=== PATIENT | female | born 1935 | race Caucasian/White ===

== ENCOUNTER 2016-10-21 11:11 | Emergency (ER) | payer MEDICARE, OTHER ==
[~2016-10-21] VITALS: Ht 165.1 cm; Wt 47.0 kg
[~2016-10-21 11:11] MED LIST: ALBU0.086 INH; ALIG4CAP PO; BIOT2500 PO; CARB1DRO EACH EYE; DIPH1TAB36 PO; ESTR30V PV; GABA300C3 PO; LEVA1.25 IN; MUCI600T PO; PRIL20CA PO; SYMB80AE INH; VITA-13 PO
[2016-10-21 11:14] VITALS: PULSE 93; RESP 28; TEMP 97.8; O2SAT 91
[2016-10-21 11:25] VITALS: BP 175/76; PULSE 89; RESP 24; TEMP 98.6; O2SAT 92
[2016-10-21 11:34] VITALS: BP 175/76; PULSE 90; RESP 24; O2SAT 96
[2016-10-21] MEDS ORDERED: VITA100018 PO (11:42)
[2016-10-21] MEDS ORDERED: IPRASOL INH (11:42)
[2016-10-21] MEDS ORDERED: SYMB80AE INH (11:42)
[2016-10-21] MEDS ORDERED: GABA300C5 PO (11:42)
[2016-10-21] MEDS ORDERED: ESTR0.62 VAGINAL (11:42)
[2016-10-21] MEDS ORDERED: BIOT1SUB SL (11:42)
[2016-10-21] MEDS ORDERED: AZEL0.055 EACH NARE (11:42)
[2016-10-21] MEDS ORDERED: OMEP20TA PO (11:42)
[2016-10-21] MEDS ORDERED: PRED5TAB PO (11:42)
[2016-10-21] MEDS ORDERED: FEXO1TAB41 PO (11:42)
--- NOTE | 2016-10-21 12:01 | PD ---
HPI Chief Complaint: Respiratory Symptoms Time Seen by Provider: 11:21 Travel History International Travel<30 days: No Contact w/Intl Traveler<30days: No Traveled to known affect area: No History of Present Illness HPI 81-year-old female came to the emergency room with history of progressive shortness of breath for past 6 weeks. She has significant history of COPD and bronchiectasis and her revenue officer is Dr. Clarke. Patient says that she went to see him this morning and he sent her to the emergency room. Patient usually requires oxygen via nasal cannula at night but she said lately she's been using it throughout the day. Even the slightest activity brings shortness of breath. No chest pain. No significant chills or fever. She has had multiple pneumonias in the past and multiple doses of antibiotics. Patient has been slightly hypertensive. Currently she is laying in bed and looks comfortable. Patient took one nebulizer this morning prior to coming to the emergency room. PFSH Past Medical History Narrative Medical List of her past medical history as reviewed from the nursing note. Cancer: No Cardiovascular Problems: Yes (LEAKY AORTIC VALVE) COPD: Yes Diminished Hearing: No Endocrine: No Gastrointestinal Disorders: Yes GERD: Yes Genitourinary: No Immune Disorder: No Musculoskeletal: No Neurologic: No Reproductive: No Respiratory: Yes (COPD / BRONCHIECTASIS) Immunizations Current: Yes (SHINGLES) Influenza Vaccination: Yes ?: Not Menopausal: Yes Past Surgical History Hysterectomy: Yes Thoracic Surgery: Yes (RT UPPER LUNG- CYST REMOVED 1998) Tonsillectomy: Yes (T & A as a child) Other Surgery: Yes (RIGHT HAND) Social History Alcohol Use: Yes (One drink every day) Tobacco Use: No (quit in 1966 smoked for approx 10-12 yrs 1 ppd of cigs) Substance Use: No Allergies-Medications (Allergen,Severity, Reaction): Coded Allergies: Ancef (Verified Allergy, Severe, RASH, 10/21/16) Flagyl (Verified Allergy, Severe, BURNING SENSATION, 10/21/16) Myambutol (Verified Allergy, Severe, EYE PROBLEMS, 10/21/16) Penicillin (Verified Allergy, Severe, HIVES, 10/21/16) Tobramycin (Verified Allergy, Severe, BURNING SENSATION, 10/21/16) Levaquin (Verified Allergy, Unknown, Numbness, 10/21/16) Comments List of her allergies reviewed from the nursing note. Reported Meds & Prescriptions Reported Meds & Active Scripts Active Bactrim DS (Sulfamethoxazole-Trimethoprim) 800-160 Mg Tab 1 Tab PO BID Reported Premarin Vaginal (Estrogens, Conjugated Vaginal) 0.625 Mg/Gm Cream 1 Gm VAGINAL HS Biotin 5,000 Mcg Subl 2,500 Mcg SL DAILY Mucinex Allergy (Fexofenadine HCl) 180 Mg Tab 180 Mg PO DAILY Azelastine Nasal [place] (Azelastine HCl) 0.15% [place] 2 [place] EACH NARE BID To each nostril. Vitamin D3 (Cholecalciferol) 1,000 Unit Tab 1,000 Units PO DAILY Duoneb (Ipratropium-Albuterol Neb) 0.5-2.5 Mg/3 Ml Neb 1 Nebule INH BID NEB Omeprazole 20 Mg Tab 20 Mg PO DAILY Gabapentin 300 Mg Cap 300 Mg PO BID Symbicort Inh (Budesonide/Formoterol Fumarate) 80-4.5 Mcg/Act Aero 2 Puff INH Q12HR Prednisone 5 Mg Tab 5 Mg PO DAILY Narrative Medication List of her home medications reviewed from the nursing note. Review of Systems Except as stated in HPI: all other systems reviewed are Neg Physical Exam Narrative GENERAL: Awake, alert, elderly, mild distress SKIN: Warm and dry. HEAD: Atraumatic. Normocephalic. EYES: Pupils equal and round. No scleral icterus. No injection or drainage. ENT: No nasal bleeding or discharge. Mucous membranes pink and moist. NECK: Trachea midline. No JVD. CARDIOVASCULAR: Regular rate and rhythm. No murmur appreciated. RESPIRATORY: No accessory muscle use. Fine crackles in patchy distribution. GASTROINTESTINAL: Abdomen soft, non-tender, nondistended. Hepatic and splenic margins not palpable. MUSCULOSKELETAL: No obvious deformities. No clubbing. No cyanosis. No edema. NEUROLOGICAL: Awake and alert. No obvious cranial nerve deficits. Motor grossly within normal limits. Normal speech. PSYCHIATRIC: Appropriate mood and affect; insight and judgment normal. Data Data Last Documented VS Vital Signs Date Time Temp Pulse Resp B/P Pulse Ox O2 Delivery O2 Flow Rate FiO2 10/21/16 13:26 85 22 149/65 99 Nasal Cannula 2 10/21/16 11:25 98.6 Orders Electrocardiogram (10/21/16 ) Complete Blood Count With Diff (10/21/16 12:04) Basic Metabolic Panel (Bmp) (10/21/16 12:04) B-Type Natriuretic Peptide (10/21/16 12:04) Prothrombin Time / Inr (Pt) (10/21/16 12:04) Magnesium (Mg) (10/21/16 12:04) Ckmb (Isoenzyme) Profile (10/21/16 12:04) Troponin I (10/21/16 12:04) Urinalysis - C+S If Indicated (10/21/16 12:04) Blood Culture (10/21/16 12:04) Iv Access Insert/Monitor (10/21/16 12:04) Ecg Monitoring (10/21/16 12:04) Oximetry (10/21/16 12:04) Oxygen Administration (10/21/16 12:04) Chest, Single Ap (10/21/16 12:04) Sodium Chloride 0.9% Flush (Ns Flush) (10/21/16 12:15) Albuterol-Ipratropium Neb (Duoneb Neb) (10/21/16 12:15) Sodium Chlorid 0.9% 500 Ml Inj (Ns 500 M (10/21/16 13:15) Sulfamet-Trimeth Ds 800-160 Mg (Bactrim (10/21/16 13:30) Labs Laboratory Tests Test 10/21/16 10/21/16 12:10 13:03 White Blood Count 15.4 TH/MM3 Red Blood Count 4.68 MIL/MM3 Hemoglobin 14.2 GM/DL Hematocrit 42.8 % Mean Corpuscular Volume 91.6 FL Mean Corpuscular Hemoglobin 30.5 PG Mean Corpuscular Hemoglobin 33.2 % Concent Red Cell Distribution Width 13.9 % Platelet Count 396 TH/MM3 Mean Platelet Volume 8.4 FL Neutrophils (%) (Auto) 86.8 % Lymphocytes (%) (Auto) 6.2 % Monocytes (%) (Auto) 5.1 % Eosinophils (%) (Auto) 1.2 % Basophils (%) (Auto) 0.7 % Neutrophils # (Auto) 13.4 TH/MM3 Lymphocytes # (Auto) 1.0 TH/MM3 Monocytes # (Auto) 0.8 TH/MM3 Eosinophils # (Auto) 0.2 TH/MM3 Basophils # (Auto) 0.1 TH/MM3 CBC Comment DIFF FINAL Differential Comment Prothrombin Time 10.5 SEC Prothromb Time International 1.0 RATIO Ratio Sodium Level 138 MEQ/L Potassium Level 4.4 MEQ/L Chloride Level 102 MEQ/L Carbon Dioxide Level 27.9 MEQ/L Anion Gap 8 MEQ/L Blood Urea Nitrogen 29 MG/DL Creatinine 1.02 MG/DL Estimat Glomerular Filtration 52 ML/MIN Rate Random Glucose 76 MG/DL Calcium Level 9.0 MG/DL Magnesium Level 2.0 MG/DL Total Creatine Kinase 82 U/L Troponin I LESS THAN 0.02 NG/ML B-Type Natriuretic Peptide 129 PG/ML Urine Color YELLOW Urine Turbidity CLEAR Urine pH 5.5 Urine Specific [place] 1.014 Urine Protein NEG mg/dL Urine Glucose (UA) NEG mg/dL Urine Ketones NEG mg/dL Urine Occult Blood NEG Urine Nitrite NEG Urine Bilirubin NEG Urine Urobilinogen LESS THAN 2.0 MG/DL Urine Leukocyte Esterase LARGE Urine RBC 3 /hpf Urine WBC 4 /hpf Urine Squamous Epithelial 2 /hpf Cells Urine Bacteria RARE /hpf Urine Mucus FEW /lpf Microscopic Urinalysis Comment CULT NOT INDICATED MDM Medical Decision Making Medical Screen Exam Complete: Yes Emergency Medical Condition: Yes Medical Record Reviewed: Yes Interpretation(s) Twelve-lead EKG was reviewed by me. Normal sinus rhythm, left axis deviation, nonspecific ST-T wave changes. Heart rate of 81 bpm. Differential Diagnosis Pneumonia, COPD exacerbation, pleural effusion Narrative Course 1 PM patient has slight leukocytosis. Chest x-ray shows emphysematous changes but no new pneumonia as per the radiologist. Patient appears to be somewhat dehydrated. I'll give her a fluid bolus. I have put a call out for Dr. Clarke who is her revenue officer to speak with him since he recommended her to come to the emergency room. 1:49 PM I discussed the case with her revenue officer who let me know that he had not seen the patient today and this was over the phone conversation when he recommended her to go to the emergency room. Given the fact that her vital signs are fine at rest and he was comfortable having the patient go home on Bactrim. He'll call the patient and get an appointment to see him. I'm comfortable with that plan. Procedures EKG Prior to Arrival: Yes Diagnosis Primary Impression: COPD with acute exacerbation Additional Impression: Bronchitis Referrals: Primary Care Physician 2 days Additional Instructions: Please return to the ER if the condition worsens or any other new concerns. Otherwise follow-up with your revenue officer in couple days. Dr. Clarke's nurse will call you to give him an appointment to see him. Please take the medication as per the prescription direction Med/Other Pt SpecificInfo: Prescription(s) given Scripts Sulfamethoxazole-Trimethoprim (Bactrim DS)800-160 Mg Tab1 Tab PO BID #20 TAB Ref 0 Prov:Manuela Ellison MD 10/21/16 Disposition: 01 DISCHARGE HOME Condition: Stable Manuela Ellison MD Oct 21, 2016 12:00
[2016-10-21] MEDS ORDERED: SODIUM CHLORIDE 0.9% FLUSH 5 ML FLUSH IVF PRN (12:15)
[2016-10-21] MEDS: RESP: ALBUTEROL 2.5 MG/IPRATROPIUM 0.5 MG NEB (SCH) INH (12:24)
[2016-10-21 12:27] LABS: AUTOMATED NEUTROPHIL # 13.4 TH/MM3 (1.8-7.7); BASOPHIL # 0.1 TH/MM3 (0-0.2); BASOPHIL % 0.7 % (0.0-2.0); EOSINOPHIL # 0.2 TH/MM3 (0-0.4); EOSINOPHIL % 1.2 % (0.0-4.0); HEMATOCRIT 42.8 % (35.0-46.0); HEMO FLAGS DIFF FINAL; LYMPH % 6.2 % (9.0-44.0); MEAN CELL VOLUME 91.6 FL (80.0-100.0); MEAN CORPUSCULAR HEMOGLOBIN 30.5 PG (27.0-34.0); MEAN CORPUSCULAR HGB CONC 33.2 % (32.0-36.0); MONO % 5.1 % (0.0-8.0); NEUT % 86.8 % (16.0-70.0); PLATELET COUNT 396 TH/MM3 (150-450); RED BLOOD COUNT 4.68 MIL/MM3 (4.00-5.30); RED CELL DISTRIBUTION WIDTH 13.9 % (11.6-17.2); WHITE BLOOD COUNT 15.4 TH/MM3 (4.0-11.0)
--- NOTE | 2016-10-21 12:31 | RADRPT ---
EXAM DATE/TIME: 10/21/2016 12:03 [facility] COMPARISON: CHEST SINGLE AP, June 12, 2016, 8:57. INDICATIONS : Short of breath. MEDICAL HISTORY : Chronic obstructive pulmonary disease. SURGICAL HISTORY : thoracotomy ENCOUNTER: Initial ACUITY: 1 day PAIN SCORE: 0/10 LOCATION: Bilateral chest FINDINGS: A single view of the chest demonstrates stable hyperinflation with fibroemphysematous scarring most p rominent in the apices. There is superimposed confluent infiltrate. Heart size is normal. Osseous str uctures are intact CONCLUSION: Stable fibroemphysematous changes. No superimposed acute infiltrate. Lukas Mckinley MD Board Certified Radiologist. This report was verified electronically.
[2016-10-21 12:34] LABS: PROTHROMBIN TIME - PATIENT 10.5 SEC (9.8-11.6)
[2016-10-21 12:36] VITALS: BP 171/70; PULSE 91; RESP 24; O2SAT 97
[2016-10-21 12:44] LABS: ANION GAP 8 MEQ/L (5-15); BICARBONATE 27.9 MEQ/L (21.0-32.0); BLOOD UREA NITROGEN 29 MG/DL (7-18); CHLORIDE 102 MEQ/L (98-107); GLOMERULAR FILTRATION RATE 52 ML/MIN (>89); POTASSIUM 4.4 MEQ/L (3.5-5.1); SODIUM (NA) 138 MEQ/L (136-145)
[2016-10-21 13:03] LABS: CREATINE KINASE 82 U/L (26-192)
[2016-10-21] MEDS ORDERED: SODIUM CHLORID 0.9% 500 ML INJ 500 ML IV ONE (13:15)
[2016-10-21 13:26] VITALS: BP 149/65; PULSE 85; RESP 22; O2SAT 99
[2016-10-21 13:29] LABS: BACTERIA, URINE RARE /hpf; BLOOD, URINE NEG (NEG); GLUCOSE,URINE NEG (NEG); KETONE, URINE NEG (NEG); MUCUS URINE FEW /lpf (OCC); NITRITE,URINE NEG (NEG); PH, URINE 5.5 (5.0-8.5); SQUAMOUS EPITHELIAL CELL URINE 2 /hpf (0-5); URINE COLOR YELLOW (YELLW/STRAW)
[2016-10-21] MEDS ORDERED: SULFAMETHOXAZOLE-TRIMETHOPRIM DS 800-160 MG TAB PO ONE (13:30)
[2016-10-21 13:31] LABS: COMMENT (UR) CULT NOT INDICATED; CULTURE IF INDICATED CULT NOT INDICATED
[2016-10-21] MEDS ORDERED: BACT800T5 PO (14:06)
--- NOTE | 2016-10-21 19:13 | EKG ---
Date Performed: 10/21/2016 Time Performed: 11:27:52 PTAGE: 81 years EKG: Sinus rhythm WITH SINUS ARRHYTHMIA SEPTAL MYOCARDIAL INFARCTION ABNORMAL ECG PREVIOUS TRACING : 07/21/2015 13.22 DOCTOR: Jose Burgos Interpretating Date/Time 10/21/2016 19:12:42
== END 2016-10-21 14:47 | disposition home or self-care (01) ==
LOC: NEPA 11:11
DX: J44.1 Chronic obstructive pulmonary disease with (acute) exacerbation (principal); I49.8 Other specified cardiac arrhythmias; R94.31 Abnormal electrocardiogram [ECG] [EKG]; K21.9 Gastro-esophageal reflux disease without esophagitis
CPT/HCPCS: 71010; 80048; 81001; 82550; 83735; 83880; 84484; 85025; 85610; 87040; 93005; 94664; 96360; 99285; J7040

== ENCOUNTER → 2016-10-29 | Outpatient (CLI) | payer MEDICARE, OTHER ==
[~2016-10-29] MED LIST changes: -ALBU0.086 INH; -ALIG4CAP PO; +AZEL0.055 EACH NARE; +BACT800T5 PO; +BIOT1SUB SL; -BIOT2500 PO; -CARB1DRO EACH EYE; -DIPH1TAB36 PO; +ESTR0.62 VAGINAL; -ESTR30V PV; +FEXO1TAB41 PO; -GABA300C3 PO; +GABA300C5 PO; +IPRASOL INH; -LEVA1.25 IN; +OMEP20TA PO; +PRED5TAB PO; -PRIL20CA PO; -VITA-13 PO; +VITA100018 PO
[2016-10-29 09:20] LABS: AUTOMATED NEUTROPHIL # 7.6 TH/MM3 (1.8-7.7); BASOPHIL # 0.1 TH/MM3 (0-0.2); BASOPHIL % 0.8 % (0.0-2.0); EOSINOPHIL # 0.1 TH/MM3 (0-0.4); EOSINOPHIL % 1.3 % (0.0-4.0); HEMATOCRIT 42.6 % (35.0-46.0); HEMO FLAGS DIFF FINAL; LYMPH % 23.3 % (9.0-44.0); LYMPHOCYTE # 2.6 TH/MM3 (1.0-4.8); MEAN CELL VOLUME 91.5 FL (80.0-100.0); MEAN CORPUSCULAR HEMOGLOBIN 30.1 PG (27.0-34.0); MEAN CORPUSCULAR HGB CONC 32.9 % (32.0-36.0); MONO % 6.3 % (0.0-8.0); NEUT % 68.3 % (16.0-70.0); PLATELET COUNT 525 TH/MM3 (150-450); RED BLOOD COUNT 4.66 MIL/MM3 (4.00-5.30); RED CELL DISTRIBUTION WIDTH 13.8 % (11.6-17.2); WHITE BLOOD COUNT 11.2 TH/MM3 (4.0-11.0)
[2016-10-29 09:48] LABS: ALKALINE PHOSPHATASE 83 U/L (45-117); ALT (GPT) 23 U/L (10-53); ANION GAP 9 MEQ/L (5-15); AST (GOT) 16 U/L (15-37); BICARBONATE 28.4 MEQ/L (21.0-32.0); BLOOD UREA NITROGEN 31 MG/DL (7-18); CHLORIDE 102 MEQ/L (98-107); CREATINE KINASE 113 U/L (26-192); GLOMERULAR FILTRATION RATE 37 ML/MIN (>89); GLUCOSE,FASTING 65 MG/DL (74-99); HDL CHOLESTEROL 73.8 MG/DL (40.0-60.0); LDL CHOLESTEROL 153 MG/DL (0-99); POTASSIUM 5.3 MEQ/L (3.5-5.1); SODIUM (NA) 139 MEQ/L (136-145); TOTAL BILIRUBIN ADULT 0.4 MG/DL (0.2-1.0)
== END ==
LOC: PLAB 07:12
PROVIDERS: ATTEND Family Medicine
DX: I77.1 Stricture of artery (principal); K59.00 Constipation, unspecified
CPT/HCPCS: 36415; 80053; 80061; 82550; 85025

== ENCOUNTER → 2016-11-22 | Outpatient (CLI) | payer MEDICARE, OTHER ==
--- NOTE | 2016-11-27 08:26 | RSPPFT ---
DATE OF PROCEDURE: 11/22/16 COMMENTS: VOLUMES DYNAMIC: FVC mildly reduced; FEV1 moderately reduced. STATIC: VTG mildly increased; RV moderately increased; TLC normal. FLOWS: FEV1% moderately reduced; FEF 25-75 severely reduced. DIFFUSION: Moderately reduced. FLOW VOLUME LOOP: Pattern of variable intrathoracic airways obstruction. IMPRESSION: Moderately severe obstructive ventilatory defect with reduction in diffusion and hyperinflation. Minimal change post-bronchodilator. Airways resistance is increased.
== END ==
LOC: HRSP 12:06
PROVIDERS: ATTEND Internal Medicine
DX: R06.02 Shortness of breath (principal)
CPT/HCPCS: 94060; 94726; 94729

== ENCOUNTER 2017-01-14 10:11 | Emergency (ER) | payer MEDICARE, OTHER ==
[~2017-01-14] VITALS: Ht 166.4 cm; Wt 48.6 kg
[~2017-01-14 10:11] MED LIST changes: -MUCI600T PO
[2017-01-14 10:15] VITALS: BP 121/73; PULSE 84; RESP 22; TEMP 97.8; O2SAT 98
[2017-01-14] MEDS ORDERED: MUCI600T PO (10:34)
[2017-01-14] MEDS ORDERED: SODIUM CHLORIDE 0.9% FLUSH 10 ML FLUSH IVF PRN (10:45)
[2017-01-14 10:58] VITALS: O2SAT 98
--- NOTE | 2017-01-14 11:05 | RADHPO ---
EXAM DATE/TIME: 01/14/2017 10:55 [facility] COMPARISON: CT THORAX W/O CONTRAST, March 08, 2015, 21:50. CHEST PA & LAT, July 21, 2015, 14:12. CHEST SINGLE AP, October 21, 2016, 12:03. INDICATIONS : Short of breath. Heart racing. MEDICAL HISTORY : Chronic obstructive pulmonary disease. Gastroesophageal reflux disease. Leaky aortic valve. SURGICAL HISTORY : Hysterectomy. Tonsillectomy. Right upper lobectomy. ENCOUNTER: Initial ACUITY: 2 weeks PAIN SCORE: 0/10 LOCATION: Bilateral chest FINDINGS: There is hyperinflation and attenuated lung markings consistent with underlying COPD. Scattered areas of parenchymal density are again visualized consistent with areas of scarring. There is cardiomegaly . Right apical bullous emphysematous change again noted. No effusions. No consolidation. CONCLUSION: No significant change has occurred. Gio Huffman MD on January 14, 2017 at 11:03 Board Certified Radiologist. This report was verified electronically.
[2017-01-14 11:09] LABS: AUTOMATED NEUTROPHIL # 11.9 TH/MM3 (1.8-7.7); BASOPHIL # 0.1 TH/MM3 (0-0.2); BASOPHIL % 0.5 % (0.0-2.0); EOSINOPHIL # 0.2 TH/MM3 (0-0.4); EOSINOPHIL % 1.3 % (0.0-4.0); HEMATOCRIT 40.8 % (35.0-46.0); LYMPH % 11.1 % (9.0-44.0); LYMPHOCYTE # 1.6 TH/MM3 (1.0-4.8); MEAN CORPUSCULAR HGB CONC 32.7 % (32.0-36.0); MONO % 5.4 % (0.0-8.0); NEUT % 81.7 % (16.0-70.0); PLATELET COUNT 378 TH/MM3 (150-450); RED BLOOD COUNT 4.44 MIL/MM3 (4.00-5.30); RED CELL DISTRIBUTION WIDTH 14.1 % (11.6-17.2); WHITE BLOOD COUNT 14.6 TH/MM3 (4.0-11.0)
[2017-01-14 11:14] LABS: HEMO FLAGS DIFF FINAL
[2017-01-14 11:18] LABS: CHLORIDE 110 MEQ/L (98-107); POTASSIUM 3.8 MEQ/L (3.5-5.1); SODIUM (NA) 146 MEQ/L (136-145)
[2017-01-14 11:22] LABS: ANION GAP 7 MEQ/L (5-15); BLOOD UREA NITROGEN 27 MG/DL (7-18)
[2017-01-14 11:23] LABS: APTT (PATIENT) 25.7 SEC (24.3-30.1); PROTHROMBIN TIME - PATIENT 10.7 SEC (9.8-11.6)
[2017-01-14 11:25] LABS: GLOMERULAR FILTRATION RATE 53 ML/MIN (>89)
[2017-01-14 11:28] LABS: CREATINE KINASE 101 U/L (26-192)
--- NOTE | 2017-01-14 11:35 | PD ---
HPI Chief Complaint: Cardiac Complaint Time Seen by Provider: 10:23 Travel History International Travel<30 days: No Contact w/Intl Traveler<30days: No Traveled to known affect area: No History of Present Illness HPI The patient's 81[address] clarke of pulmonology today for routine follow- up. Her heart rate was irregular then. She was advised to see Dr. Mcgill. Dr. Mcgill advised the patient to come to the ER. She reports palpitations, mild acute on chronic dyspnea and lightheadedness for about 10 days. She denies chest pain. Location cardiopulmonary. PFSH Past Medical History Cancer: No Cardiovascular Problems: Yes (LEAKY AORTIC VALVE) COPD: Yes Diminished Hearing: No Endocrine: No Gastrointestinal Disorders: Yes GERD: Yes Genitourinary: No Immune Disorder: No Implanted Vascular Access Dvce: No Musculoskeletal: No Neurologic: No Reproductive: No Respiratory: Yes Immunizations Current: Yes (SHINGLES) ?: Not Menopausal: Yes Past Surgical History Hysterectomy: Yes Thoracic Surgery: Yes (RT UPPER LUNG- CYST REMOVED 1998) Tonsillectomy: Yes (T & A as a child) Other Surgery: Yes (RIGHT HAND) Social History Alcohol Use: Yes (One drink every day) Tobacco Use: No (quit in 1966 smoked for approx 10-12 yrs 1 ppd of cigs) Substance Use: No Allergies-Medications (Allergen,Severity, Reaction): Coded Allergies: Ancef (Verified Allergy, Severe, RASH, 01/14/17) Flagyl (Verified Allergy, Severe, BURNING SENSATION, 01/14/17) Myambutol (Verified Allergy, Severe, EYE PROBLEMS, 01/14/17) Penicillin (Verified Allergy, Severe, HIVES, 01/14/17) Tobramycin (Verified Allergy, Severe, BURNING SENSATION, 01/14/17) Levaquin (Verified Allergy, Unknown, Numbness, 01/14/17) Reported Meds & Prescriptions Reported Meds & Active Scripts Active Reported Mucinex ER 12 HR (Guaifenesin) 600 Mg Samuel 600 Mg PO BID Premarin Vaginal (Estrogens, Conjugated Vaginal) 0.625 Mg/Gm Cream 1 Gm VAGINAL HS Biotin 5,000 Mcg Subl 2,500 Mcg SL DAILY Azelastine Nasal [place] (Azelastine HCl) 0.15% [place] 2 [place] EACH NARE BID To each nostril. Vitamin D3 (Cholecalciferol) 1,000 Unit Tab 1,000 Units PO DAILY Duoneb (Ipratropium-Albuterol Neb) 0.5-2.5 Mg/3 Ml Neb 1 Nebule INH BID NEB Omeprazole 20 Mg Tab 20 Mg PO DAILY Gabapentin 300 Mg Cap 300 Mg PO BID Symbicort Inh (Budesonide/Formoterol Fumarate) 80-4.5 Mcg/Act Aero 2 Puff INH Q12HR Prednisone 5 Mg Tab 5 Mg PO DAILY Review of Systems Except as stated in HPI: all other systems reviewed are Neg General / Constitutional: No: Fever Cardiovascular: Positive: Palpitations Physical Exam Narrative GENERAL: 81-year-old female pleasant no acute distress SKIN: Focused skin assessment warm/dry. HEAD: Atraumatic. Normocephalic. EYES: Pupils equal and round. No scleral icterus. No injection or drainage. ENT: No nasal bleeding or discharge. Mucous membranes pink and moist. NECK: Trachea midline. No JVD. CARDIOVASCULAR: Irregular rhythm. Rate approximately 80. RESPIRATORY: No accessory muscle use. Clear to auscultation. Breath sounds equal bilaterally. GASTROINTESTINAL: Abdomen soft, non-tender, nondistended. Hepatic and splenic margins not palpable. MUSCULOSKELETAL: No obvious deformities. No clubbing. No cyanosis. No edema. NEUROLOGICAL: Awake and alert. No obvious cranial nerve deficits. Motor grossly within normal limits. Normal speech. PSYCHIATRIC: Appropriate mood and affect; insight and judgment normal. Data Data Last Documented VS Vital Signs Date Time Temp Pulse Resp B/P Pulse Ox O2 Delivery O2 Flow Rate FiO2 01/14/17 11:38 78 18 114/61 97 Nasal Cannula 2 01/14/17 10:15 97.8 Vital signs reviewed Orders Electrocardiogram (01/14/17 10:43) Basic Metabolic Panel (Bmp) (01/14/17 10:43) Ckmb (Isoenzyme) Profile (01/14/17 10:43) Complete Blood Count With Diff (01/14/17 10:43) Magnesium (Mg) (01/14/17 10:43) Prothrombin Time / Inr (Pt) (01/14/17 10:43) Act Partial Throm Time (Ptt) (01/14/17 10:43) Troponin I (01/14/17 10:43) Chest, Single Ap (01/14/17 10:43) Ecg Monitoring (01/14/17 10:43) Iv Access Insert/Monitor (01/14/17 10:43) Oximetry (01/14/17 10:43) Oxygen Administration (01/14/17 10:43) Sodium Chloride 0.9% Flush (Ns Flush) (01/14/17 10:45) CKMB (01/14/17 10:54) CKMB% (01/14/17 10:54) Sodium Chlorid 0.9% 500 Ml Inj (Ns 500 M (01/14/17 11:45) Labs Laboratory Tests Test 01/14/17 10:54 White Blood Count 14.6 TH/MM3 Red Blood Count 4.44 MIL/MM3 Hemoglobin 13.3 GM/DL Hematocrit 40.8 % Mean Corpuscular Volume 92.0 FL Mean Corpuscular Hemoglobin 30.0 PG Mean Corpuscular Hemoglobin 32.7 % Concent Red Cell Distribution Width 14.1 % Platelet Count 378 TH/MM3 Mean Platelet Volume 8.4 FL Neutrophils (%) (Auto) 81.7 % Lymphocytes (%) (Auto) 11.1 % Monocytes (%) (Auto) 5.4 % Eosinophils (%) (Auto) 1.3 % Basophils (%) (Auto) 0.5 % Neutrophils # (Auto) 11.9 TH/MM3 Lymphocytes # (Auto) 1.6 TH/MM3 Monocytes # (Auto) 0.8 TH/MM3 Eosinophils # (Auto) 0.2 TH/MM3 Basophils # (Auto) 0.1 TH/MM3 CBC Comment DIFF FINAL Differential Comment Prothrombin Time 10.7 SEC Prothromb Time International 1.0 RATIO Ratio Activated Partial 25.7 SEC Thromboplast Time Sodium Level 146 MEQ/L Potassium Level 3.8 MEQ/L Chloride Level 110 MEQ/L Carbon Dioxide Level 29.0 MEQ/L Anion Gap 7 MEQ/L Blood Urea Nitrogen 27 MG/DL Creatinine 1.00 MG/DL Estimat Glomerular Filtration 53 ML/MIN Rate Random Glucose 82 MG/DL Calcium Level 8.7 MG/DL Magnesium Level 2.0 MG/DL Total Creatine Kinase 101 U/L Creatine Kinase MB 3.7 NG/ML Troponin I LESS THAN 0.02 NG/ML MDM Medical Decision Making Medical Screen Exam Complete: Yes Emergency Medical Condition: Yes Medical Record Reviewed: Yes Differential Diagnosis Arrhythmia, atrial fibrillation, electrolyte imbalance, dehydration, hypoxia, anemia Narrative Course CBC & BMP Diagram 01/14/17 10:54 The troponin is less than 0.02 Magnesium normal EKG: reveals a sinus rhythm with frequent unifocal PVCs with a rate of approximately INR 1.0 Last 24 hours Impressions Chest X-Ray 01/14/17 1043 Signed Impressions: Service Date/Time: Saturday, January 14, 2017 10:55 - CONCLUSION: No significant change has occurred. Gio Huffman MD Case was discussed with Dr. Clarke. Case discussed with Dr. Mcgill. f/u w Dr. Mcgill as outpatient in next few days. Pt received 500cc NS here. Increased oral hydration discussed with pt. Copy of bloodwork also provided at pt's request. Diagnosis Primary Impression: Frequent PVCs Additional Impression: Dehydration Referrals: Amber Gibson MD 2 days Santana Mcgill MD 1 day Kathi Clarke MD Additional Instructions: You have a choice when it comes to health care, and we are glad that you chose [facility]. Hopefully, we have met your expectations on today's visit. You are welcome to return to [facility] at any time, as we are committed to meeting the health care needs of our community. Med/Other Pt SpecificInfo: No Change to Meds Disposition: 01 DISCHARGE HOME Condition: Stable Mick August MD Jan 14, 2017 11:35
[2017-01-14 11:38] VITALS: BP 114/61; PULSE 78; RESP 18; O2SAT 97
[2017-01-14 11:40] LABS: CKMB 3.7 NG/ML (0.5-3.6)
[2017-01-14] MEDS ORDERED: SODIUM CHLORID 0.9% 500 ML INJ 500 ML IV ONE (11:45)
--- NOTE | 2017-01-15 12:10 | EKG ---
Date Performed: 01/14/2017 Time Performed: 10:23:12 PTAGE: 81 years EKG: Sinus rhythm with frequent PVCs Possible left atrial abnormality Possible septal infarct - age undetermined Abnor mal ECG PREVIOUS TRACING : 10/21/2016 11.27 DOCTOR: King Hagan Interpretating Date/Time 01/15/2017 12:04:08
== END 2017-01-14 12:25 | disposition home or self-care (01) ==
LOC: PHED 10:11
DX: I49.3 Ventricular premature depolarization (principal); E86.0 Dehydration; R06.00 Dyspnea, unspecified; R42 Dizziness and giddiness; R94.31 Abnormal electrocardiogram [ECG] [EKG]; Z86.79 Personal history of other diseases of the circulatory system; Z87.09 Personal history of other diseases of the respiratory system; Z87.19 Personal history of other diseases of the digestive system
CPT/HCPCS: 71010; 80048; 82550; 82552; 83735; 84484; 85025; 85610; 85730; 93005; 99285; J7040

== ENCOUNTER → 2017-02-12 | Outpatient (CLI) | payer MEDICARE, OTHER ==
[~2017-02-12] MED LIST changes: -BACT800T5 PO; -FEXO1TAB41 PO; +MUCI600T PO
--- NOTE | 2017-02-19 12:25 | RSPPFT ---
DATE OF PROCEDURE: 02/12/17 COMMENTS: VOLUMES DYNAMIC: FVC mildly reduced; FEV1 moderately reduced. STATIC: FRC mildly increased; RV moderately increased; TLC normal. FLOWS; FEV1% and FEF 25-75 severely reduced. DIFFUSION: Moderately reduced. FLOW VOLUME LOOP: Pattern of variable intrathoracic airways obstruction. IMPRESSION: Moderately severe to severe obstructive ventilatory defect with hyperinflation. There is some improvement post-bronchodilator. Diffusion is reduced. Airways resistance is increased.
== END ==
LOC: PHRSP 09:29
PROVIDERS: ATTEND Internal Medicine
DX: J47.9 Bronchiectasis, uncomplicated (principal); R06.02 Shortness of breath
CPT/HCPCS: 94060; 94726; 94729

== ENCOUNTER → 2017-08-18 | Outpatient (CLI) | payer MEDICARE, OTHER ==
[~2017-08-18] MED LIST changes: -OMEP20TA PO; +OMEP20TA93 PO
[2017-08-18 13:22] LABS: HEMATOCRIT 40.3 % (35.0-46.0); MEAN CELL VOLUME 93.5 FL (80.0-100.0); MEAN CORPUSCULAR HEMOGLOBIN 31.2 PG (27.0-34.0); RED BLOOD COUNT 4.31 MIL/MM3 (4.00-5.30); WHITE BLOOD COUNT 14.8 TH/MM3 (4.0-11.0)
[2017-08-18 13:23] LABS: AUTOMATED NEUTROPHIL # 12.3 TH/MM3 (1.8-7.7); BASOPHIL # 0.1 TH/MM3 (0-0.2); BASOPHIL % 0.8 % (0.0-2.0); EOSINOPHIL # 0.2 TH/MM3 (0-0.4); EOSINOPHIL % 1.4 % (0.0-4.0); HEMO FLAGS DIFF FINAL; LYMPH % 9.3 % (9.0-44.0); LYMPHOCYTE # 1.4 TH/MM3 (1.0-4.8); MEAN CORPUSCULAR HGB CONC 33.3 % (32.0-36.0); MONO % 5.4 % (0.0-8.0); NEUT % 83.1 % (16.0-70.0); PLATELET COUNT 340 TH/MM3 (150-450); RED CELL DISTRIBUTION WIDTH 14.2 % (11.6-17.2)
[2017-08-18 14:35] LABS: ANION GAP 5 MEQ/L (5-15); AST (GOT) 20 U/L (15-37); BICARBONATE 30.1 MEQ/L (21.0-32.0); BLOOD UREA NITROGEN 32 MG/DL (7-18); CHLORIDE 106 MEQ/L (98-107); GLOMERULAR FILTRATION RATE 51 ML/MIN (>89); POTASSIUM 4.1 MEQ/L (3.5-5.1); SODIUM (NA) 141 MEQ/L (136-145)
[2017-08-18 14:47] LABS: ALKALINE PHOSPHATASE 77 U/L (45-117); ALT (GPT) 26 U/L (10-53); TOTAL BILIRUBIN ADULT 0.6 MG/DL (0.2-1.0)
== END ==
LOC: PLAB 10:05
PROVIDERS: ATTEND Family Medicine
DX: N18.3 Chronic kidney disease, stage 3 (moderate) (principal)
CPT/HCPCS: 36415; 80053; 85025

== ENCOUNTER 2018-01-25 13:40 | Emergency (ER) | payer MEDICARE, OTHER ==
[~2018-01-25] VITALS: Ht 165.1 cm; Wt 50.0 kg
[2018-01-25 13:44] VITALS: BP 167/80; PULSE 91; RESP 16; TEMP 98; O2SAT 97
[2018-01-25] MEDS ORDERED: CBD PO (13:59)
[2018-01-25] MEDS ORDERED: BIOT2500 PO (13:59)
[2018-01-25] MEDS ORDERED: EPICOR PO (13:59)
[2018-01-25] MEDS ORDERED: NACCAP PO (13:59)
[2018-01-25] MEDS ORDERED: LACTCAP8 PO (14:00)
[2018-01-25] MEDS ORDERED: MUPI2%T TOPICAL (14:05)
[2018-01-25] MEDS ORDERED: DOXY100C PO (14:05)
--- NOTE | 2018-01-25 14:06 | PD ---
HPI Chief Complaint: Injury Time Seen by Provider: 13:58 Travel History International Travel<30 days: No Contact w/Intl Traveler<30days: No Traveled to known affect area: No History of Present Illness HPI This is an 82-year-old female here with a skin tear to the right lower extremity that she is concerned is infected. She injured the leg when she bumped into her scientologist 3 days ago. She has been cleansing it daily and covering with a Band-Aid. Today she noticed the area was tender and had redness surrounding the wound. She denies fever chills. Symptom severity is mild. No aggravating or alleviating factors. PFSH Past Medical History Cancer: No Cardiovascular Problems: Yes (LEAKY AORTIC VALVE) COPD: Yes Diminished Hearing: No Endocrine: No Gastrointestinal Disorders: Yes GERD: Yes Genitourinary: No Immune Disorder: No Implanted Vascular Access Dvce: No Musculoskeletal: No Neurologic: No Reproductive: No Respiratory: Yes Immunizations Current: Yes (SHINGLES) Influenza Vaccination: Yes ?: Not Menopausal: Yes Past Surgical History Hysterectomy: Yes Thoracic Surgery: Yes (RT UPPER LUNG- CYST REMOVED 1998) Tonsillectomy: Yes (T & A as a child) Other Surgery: Yes (RIGHT HAND) Social History Alcohol Use: Yes (One drink every day) Tobacco Use: No (quit in 1966 smoked for approx 10-12 yrs 1 ppd of cigs) Substance Use: No Allergies-Medications (Allergen,Severity, Reaction): Coded Allergies: cefazolin (Unverified Allergy, Severe, RASH, 01/25/18) ethambutol (Unverified Allergy, Severe, EYE PROBLEMS, 01/25/18) metronidazole (Unverified Allergy, Severe, BURNING SENSATION, 01/25/18) penicillin G (Unverified Allergy, Severe, HIVES, 01/25/18) tobramycin (Unverified Allergy, Severe, BURNING SENSATION, 01/25/18) levofloxacin (Unverified Allergy, Unknown, Numbness, 01/25/18) Reported Meds & Prescriptions Reported Meds & Active Scripts Active Reported Probiotic (Lactobacillus Acidophilus) 10 Billion Cell Cap 1 Cap PO DAILY Nac 600 (Acetylcysteine (Nutrient)) 600 Mg Cap 600 Mg PO DAILY [Epicor] 500 Mg PO DAILY [Cbd] 30 Mg PO DAILY Biotin 2,500 Mcg Cap 2,500 Mcg PO DAILY Premarin Vaginal (Estrogens, Conjugated Vaginal) 0.625 Mg/Gm Cream 1 Gm VAGINAL HS Azelastine Nasal [place] (Azelastine HCl) 0.15% [place] 2 [place] EACH NARE BID To each nostril. Vitamin D3 (Cholecalciferol) 1,000 Unit Tab 1,000 Units PO DAILY Duoneb (Ipratropium-Albuterol Neb) 0.5-2.5 Mg/3 Ml Neb 1 Nebule INH BID NEB Omeprazole 20 Mg Tab 20 Mg PO DAILY Gabapentin 300 Mg Cap 300 Mg PO BID Symbicort Inh (Budesonide/Formoterol Fumarate) 80-4.5 Mcg/Act Aero 2 Puff INH Q12HR Prednisone 5 Mg Tab 5 Mg PO DAILY Review of Systems Except as stated in HPI: all other systems reviewed are Neg General / Constitutional: No: Fever Eyes: No: Visual changes HENT: No: Headaches Cardiovascular: No: Chest Pain or Discomfort Respiratory: No: Shortness of Breath Gastrointestinal: No: Abdominal Pain Genitourinary: No: Dysuria Physical Exam Narrative GENERAL: Alert and well-appearing 82-year-old female. Resting comfortably on stretcher. No distress. SKIN: Warm and dry. 2.5x1.5cm superficial skin tear to the right anterior cortés with mild erythema surrounding the wound. No fluctuance or induration. No lymphangitis. HEAD: Normocephalic. EYES: No injection or drainage. NECK: Supple, trachea midline. CARDIOVASCULAR: Regular rate and rhythm without murmurs, gallops, or rubs. RESPIRATORY: Breath sounds equal bilaterally. No accessory muscle use. GASTROINTESTINAL:nondistended. MUSCULOSKELETAL: No cyanosis, or edema. Palpable DP pulses equal bilaterally. Normal sensation. Brisk cap refill. See skin note above Data Data Last Documented VS Vital Signs Date Time Temp Pulse Resp B/P (MAP) Pulse Ox O2 Delivery O2 Flow Rate FiO2 01/25/18 13:51 97 Nasal Cannula 2.00 01/25/18 13:44 98.0 91 16 167/80 (109) [facility] Medical Decision Making Medical Screen Exam Complete: Yes Emergency Medical Condition: Yes Differential Diagnosis Skin tear, wound infection, cellulitis Narrative Course 82-year-old female here with a mild wound infection to a skin tear to the right lower extremity. She is nontoxic appearing. She will be treated with antibiotics. Instructed to follow-up with her doctor this week. Diagnosis Primary Impression: Wound infection Referrals: Primary Care Physician Additional Instructions: Antibiotics as directed. Follow up with your doctor for recheck. Return if you have new or worsening symptoms. Scripts Mupirocin Topical (Bactroban Topical) 22 Gm Cream 1 APPLIC TOPICAL DAILY for Mgmt Bacterial Infection, #1 TUBE 0 Refills Prov: Kirstin Dorado 01/25/18 Doxycycline Hyclate (Doxycycline Hyclate) 100 Mg Cap 100 MG PO BID for Infection, #20 CAP 0 Refills Prov: Kirstin Dorado 01/25/18 Disposition: 01 DISCHARGE HOME Condition: Stable Kirstin Dorado Jan 25, 2018 14:06
== END 2018-01-25 14:25 | disposition home or self-care (01) ==
LOC: PHED 13:40
DX: S81.811A Laceration without foreign body, right lower leg, initial encounter (principal); L08.9 Local infection of the skin and subcutaneous tissue, unspecified; J44.9 Chronic obstructive pulmonary disease, unspecified; K21.9 Gastro-esophageal reflux disease without esophagitis; Z87.891 Personal history of nicotine dependence; W22.8XXA Striking against or struck by other objects, initial encounter
CPT/HCPCS: 99283

== ENCOUNTER → 2018-02-10 | Outpatient (CLI) | payer MEDICARE, OTHER ==
[~2018-02-10] MED LIST changes: -BIOT1SUB SL; +BIOT2500 PO; +CBD PO; +DOXY100C PO; +EPICOR PO; +LACTCAP8 PO; -MUCI600T PO; +MUPI2%T TOPICAL; +NACCAP PO
[2018-02-10 13:53] LABS: ALBUMIN 3.4 GM/DL (3.4-5.0); ALT (GPT) 25 U/L (10-53); AST (GOT) 22 U/L (15-37); BICARBONATE 26.7 MEQ/L (21.0-32.0); BLOOD UREA NITROGEN 26 MG/DL (7-18); CHLORIDE 109 MEQ/L (98-107); CREATININE 0.99 MG/DL (0.50-1.00); GLOMERULAR FILTRATION RATE 54 ML/MIN (>89); GLUCOSE,RANDOM 100 MG/DL (74-106); SODIUM (NA) 143 MEQ/L (136-145)
[2018-02-10 13:55] LABS: ALKALINE PHOSPHATASE 79 U/L (45-117); TOTAL BILIRUBIN ADULT 0.4 MG/DL (0.2-1.0); TOTAL PROTEIN 7.1 GM/DL (6.4-8.2)
== END ==
LOC: PLAB 10:37
PROVIDERS: ATTEND Family Medicine
DX: N18.3 Chronic kidney disease, stage 3 (moderate) (principal)
CPT/HCPCS: 36415; 80053

== ENCOUNTER → 2018-02-20 | Outpatient (CLI) | DX: E78.5 Hyperlipidemia, unspecified (principal); I49.3 Ventricular premature depolarization; I73.9 Peripheral vascular disease, unspecified; E78.2 Mixed hyperlipidemia ==